=== PATIENT | male | born 1950 | race Caucasian/White ===

== ENCOUNTER 2019-01-13 13:11 | Emergency (ER) | payer OTHER, BC ==
[2019-01-13 13:43] VITALS: BP 130/80; PULSE 74; TEMP 97.4; BMI 35.6
--- NOTE | 2019-01-13 15:00 | PDOC ---
History of Present Illness - General Chief Complaint: Lightheaded Stated Complaint: VERTIGO Time Seen by Provider: 01/13/19 14:19 History Source: Patient, Family, Spouse Exam Limitations: No Limitations - History of Present Illness Initial Comments: 01/13/19 14:54 CHIEF COMPLAINT: Vertigo since 6 AM this morning HISTORY OF PRESENT ILLNESS: 68-year-old man with a history of hypertension, CVA , smoking, and disability secondary to low back injury in the past. Patient states he was well until of this week, 2 days ago, when he developed symptoms of vertigo. He felt like the room was spinning. The symptoms lasted approximately 5-10 minutes on . They then fully resolved. He felt well yesterday. Today at approximately 8 AM, but definitely before 8:30 AM he developed symptoms of recurrent vertigo. He states when he lifts his head up or looks down, he develops room spinning sensation. The sensation gets better when he holds his head still. He feels his eyes are jumping, but no double vision. There is no facial asymmetry. There is no difficulty speaking. There is no difficulty swallowing. There is no focal numbness or weakness on the left or the right side of his body. There is no headache. There is no history of head trauma. REVIEW OF SYSTEMS: GENERAL/CONSTITUTIONAL: No fever or chills. No weakness. No weight change. HEAD, EYES, EARS, NOSE AND THROAT: No double vision. Vision feels "jumpy" when the vertigo is severe. No ear pain or discharge. No sore throat. CARDIOVASCULAR: No chest pain or shortness of breath. RESPIRATORY: No cough, wheezing, or hemoptysis. GASTROINTESTINAL: No nausea, vomiting, diarrhea or constipation. No rectal bleeding. GENITOURINARY: No dysuria, frequency, or change in urination. MUSCULOSKELETAL: No joint or muscle swelling or pain. No neck or back pain. SKIN AND BREASTS: No rash or easy bruising. NEUROLOGIC: No headache, positive vertigo, no loss of consciousness, and no loss of sensation. Patient walks with a cane due to unsteady gait at baseline, no change in his baseline gait. PSYCHIATRIC: No depression or anxiety. ENDOCRINE: No increased thirst. No abnormal weight change. HEMATOLOGIC/LYMPHATIC: No anemia, easy bleeding, or history of blood clots. ALLERGIC/IMMUNOLOGIC: No hives or skin allergy. No latex allergy. Past History - Past Medical History Allergies/Adverse Reactions: Allergies Allergy/AdvReac Type Severity Reaction Status Date / Time No Known Allergies Allergy Verified 01/13/19 13:21 Home Medications: Ambulatory Orders Alprazolam [Xanax] 1 mg PO BID PRN 01/13/19 Aspirin Coated [Ecotrin -] 81 mg PO DAILY 01/13/19 Enalapril Maleate [Vasotec -] 10 mg PO DAILY 01/13/19 Meclizine HCl [Antivert -] 25 mg PO TID PRN #21 tablet 01/13/19 Omeprazole 20 mg PO DAILY 01/13/19 CVA: Yes (2003, FULLY RECOVERED) COPD: No GI Disorders: Yes HTN: Yes Psychiatric Problems: Yes (ANXIETY) Other medical history: BACK PAIN (USES A CANE), PSORIASIS - Surgical History Abdominal Surgery: Yes (2 HERNIA REPAIRS) - Suicide/Smoking/Psychosocial Hx Smoking History: Current every day smoker Have you smoked in the past 12 months: Yes Number of Cigarettes Smoked Daily: 10 Information on smoking cessation initiated: Yes Hx Alcohol Use: No Drug/Substance Use Hx: No *Physical Exam - Vital Signs Last Vital Signs Temp Pulse Resp BP Pulse Ox 97.4 F L 74 20 130/80 95 01/13/19 13:13 01/13/19 13:13 01/13/19 13:13 01/13/19 13:13 01/13/19 13:13 - Physical Exam Comments: 01/13/19 14:58 GENERAL: The patient is awake, alert, and fully oriented, in no acute distress. HEAD: Normal with no signs of trauma. EYES: Pupils equal, round and reactive to light, extraocular movements intact, sclera anicteric, conjunctiva clear. ENT: Ears normal, nares patent, oropharynx clear without exudates. Poor dentition. Multiple missing teeth. Moist mucous membranes. NECK: Normal range of motion, supple without lymphadenopathy, JVD, or masses. LUNGS: Breath sounds equal, clear to auscultation bilaterally. No wheezes, and no crackles. HEART: Regular rate and rhythm, normal S1 and S2 without murmur, rub or gallop. ABDOMEN: Obese. Soft, nontender, normoactive bowel sounds. No guarding, no rebound. No masses. EXTREMITIES: Normal range of motion, no edema. No clubbing or cyanosis. No cords, erythema, or tenderness. NEURO: Mental status: The patient is oriented x3. Cranial nerves: Cranial nerves II through XII are intact, no facial droop, no sensory loss Motor: The upper extremities are 5 over 5 in all muscle groups. The lower extremities are 5 over 5 in all muscle groups. Sensation: Sensation is intact to light touch throughout. Cerebellar: Tmbusr-[id number] is normal in both upper extremities. Heel-knee- russell is normal in both lower extremities. Reflexes: 2+ and symmetric in the upper and lower extremities. Gait: Walks with a cane, states he is at baseline with his gait, no changes. PSYCH: Normal mood, normal affect. SKIN: Warm, Dry, normal turgor, positive psoriatic patches on hands, ears, and around the scalp. Heart Score/ECG Review - ECG Impressions Comment:: 01/13/19 16:07 Lead EKG shows normal sinus rhythm at a rate of 75 bpm. The axis is normal. The intervals are normal. Voltage in the limb leads is somewhat low. There are no acute ST elevations or depressions. There are no abnormal T waves. Impression: Normal 12-lead EKG. ED Treatment Course - LABORATORY CBC & Chemistry Diagram: 01/13/19 15:00 01/13/19 15:00 - RADIOLOGY Radiology Studies Ordered: Category Date Time Status HEAD CT WITHOUT CONTRAST [CT] Stat CT Scan 01/13/19 14:37 Taken Medical Decision Making - Medical Decision Making 01/13/19 17:14 68-year-old man with history of hypertension and smoking presents complaining of vertigo. The vertigo gets worse upon moving his head into a position of extension or moving his head into a position of flexion. When he holds his head still, the vertigo resolves. There are no posterior circulation symptoms. There is no diplopia or blindness. There is no change in speech. There is no facial numbness. There is no change in motor or sensory function. There is no ear pain or discharge. On examination, a detailed neurological examination is completely normal. There are no cerebellar findings. No motor or sensory findings. No cranial nerve findings. Bilateral ear examination shows no signs of erythema or inflammation. Twelve-lead EKG is normal. CT scan of the head shows possible mild white matter disease, but no focal abnormalities. Laboratory workup is unremarkable. The hemoglobin is increased, but there is no significant electrolyte abnormality. I attempted to call the patient's primary care physician, Dr. Shahid, to discuss the findings and to arrange follow- up. Patient will be given a copy of the lab results and referral back to his doctor. He spoke to the doctor earlier today, but I did not yet get a call back. I left my cell phone number for the doctor to call me back. Impression: Positional vertigo. No signs of CVA. Repeat examination remains neurologically stable. Patient feels better after meclizine. Laboratory Results - last 24 hr 01/13/19 01/13/19 01/13/19 15:00 15:00 15:00 WBC 9.0 RBC 5.70 H Hgb 17.9 H Hct 54.8 H MCV 96.2 H MCH 31.5 MCHC 32.7 RDW 14.3 Plt Count 199 MPV 9.9 Absolute Neuts (auto) 6.2 Neutrophils % 69.6 Lymphocytes % 23.1 Monocytes % 6.0 Eosinophils % 0.6 Basophils % 0.7 PT with INR 12.2 INR 1.09 PTT (Actin FS) 29.4 Sodium 134 L Potassium 4.2 Chloride 105 Carbon Dioxide 23 Anion Gap 6 L BUN 10 Creatinine 0.8 Creat Clearance w eGFR 96.72 Random Glucose 104 Calcium 8.7 Total Bilirubin 0.8 AST 20 ALT 18 Alkaline Phosphatase 98 Total Protein 7.0 Albumin 3.8 *DC/Admit/Observation/Transfer Diagnosis at time of Disposition: Positional vertigo - Discharge Dispostion Disposition: HOME Condition at time of disposition: Stable Decision to Admit order: No - Prescriptions Prescriptions: Meclizine HCl [Antivert -] 25 mg PO TID PRN #21 tablet PRN Reason: Vertigo - Referrals Referrals: Cornelius Shahid MD [Primary Care Provider] - - Patient Instructions Printed Discharge Instructions: DI for Vertigo Additional Instructions: Today you were evaluated for vertigo. The neurological examination was normal. The CT scan was also without any evidence of stroke. The blood work showed a high hemoglobin level, but this can be followed up with Dr. Shahid in the office. Be sure to bring a copy of your labs with you to the next office visit this coming week. You may take meclizine 25 mg 3 times a day as needed for vertigo. If you have any progressive or worsening symptoms. Return to the emergency department. - Post Discharge Activity
[2019-01-13 15:27] LABS: BASO % 0.7 % (0-2.0); EOS % 0.6 % (0-4.5); HEMATOCRIT 54.8 % (35.4-49); HEMOGLOBIN 17.9 GM/dl (11.7-16.9); LYMPH % 23.1 % (8-40); MCH 31.5 pg (25.7-33.7); MCHC 32.7 g/dl (32.0-35.9); MEAN CELL VOLUME 96.2 fl (80-96); MEAN PLT VOLUME 9.9 fl (7.5-11.1); NEUT % 69.6 % (42.8-82.8); PLATELET COUNT 199 K/MM3 (134-434); RDW 14.3 % (11.9-15.9)
[2019-01-13 15:33] LABS: ACTIVATED PTT 29.4 SECONDS (25.2-36.5)
[2019-01-13 15:34] LABS: ALBUMIN 3.8 g/dl (3.4-5.0); ALK PHOS 98 U/L (45-117); ANION GAP 6 MMOL/L (8-16); BILIRUBIN,TOTAL 0.8 mg/dl (0.2-1); BLOOD UREA NITROGEN 10 mg/dl (7-18); CALCIUM 8.7 mg/dl (8.5-10); CHLORIDE 105 mmol/L (98-107); CO2 23 mmol/L (21-32); CREATININE 0.8 mg/dl (0.55-1.3); GLUCOSE,RANDOM 104 mg/dl (74-106); POTASSIUM 4.2 mmol/L (3.5-5.1); SGOT/AST 20 U/L (15-37); SGPT/ALT 18 U/L (13-61); SODIUM 134 mmol/L (136-145)
[2019-01-13 15:37] LABS: INR 1.09 (0.82-1.09); PROTHROMBIN TIME (PATIENT) 12.2 SEC (10.2-13.0)
[2019-01-13] MEDS ORDERED: MECLIZINE HCL 25 MG TABLET (FP) PO ONE (16:31)
[2019-01-13] MEDS ORDERED: MECLIZINE HCL 25 MG TABLET (FP) ONE (16:44)
--- NOTE | 2019-01-14 18:00 | EKG ---
Test Reason : Blood Pressure : / mmHG Vent. Rate : 075 BPM Atrial Rate : 075 BPM P-R Int : 132 ms QRS Dur : 084 ms QT Int : 364 ms P-R-T Axes : 055 035 059 degrees QTc Int : 406 ms POOR DATA QUALITY, INTERPRETATION MAY BE ADVERSELY AFFECTED NORMAL SINUS RHYTHM LOW VOLTAGE QRS BORDERLINE ECG NO PREVIOUS ECGS AVAILABLE Confirmed by RHONDA CROCKETT MD ([id number]) on 01/14/2019 6:00:43 PM Referred By: Confirmed By:RHONDA CROCKETT MD
== END 2019-01-13 17:25 | disposition home or self-care (01) ==
LOC: FER 13:11
DX: H81.10 Benign paroxysmal vertigo, unspecified ear (principal); F17.210 Nicotine dependence, cigarettes, uncomplicated; I10 Essential (primary) hypertension; F41.9 Anxiety disorder, unspecified; G89.29 Other chronic pain; Z86.73 Personal history of transient ischemic attack (TIA), and cerebral infarction without residual deficits
CPT/HCPCS: 36415; 70450-TC; 80053; 85025; 85610; 85730; 93005; 99283-25